=== PATIENT | female | born 1955 | race Caucasian/White ===

== ENCOUNTER → 2016-05-21 | Outpatient (CLI) | payer OTHER ==
[~2016-05-21] MED LIST: CLONAZEPAM0.5 MG PO; EFFEXOR XR150 MG PO; EFFEXOR75 MG PO; METAXALONE800 MG PO; OXYMORPHONE HCL15 MG PO; PRAVASTATIN SOD40 MG PO; SKELAXIN800 MG PO; VERAPAMIL SR180 MG PO
== END | disposition home or self-care (01) ==
LOC: CDC 11:30
DX: Z01.810 Encounter for preprocedural cardiovascular examination (principal)
CPT/HCPCS: 93000